=== PATIENT | female | born 1955 | race Caucasian/White ===

== ENCOUNTER 2019-01-30 10:52 | Outpatient (CLI) | payer OTHER ==
--- NOTE | 2019-01-30 12:43 | ULT ---
THYROID ULTRASOUND: 01/30/19 INDICATION: History of hypothyroidism. COMPARISON: None. FINDINGS: The left thyroid lobe measures 1.2 x 2.6 x 1 cm. Right thyroid lobe measures 1.1 x 3.4 x 1.4 cm. Thyr oid isthmus measures 0.18 cm. No focal thyroid lesion is evident. IMPRESSION: No focal thyroid lesion. POS: [facility]
== END 2019-01-30 10:53 | disposition home or self-care (01) ==
LOC: SCSULT 10:52
PROVIDERS: ATTEND Internal Medicine
DX: E03.9 Hypothyroidism, unspecified (principal)
CPT/HCPCS: 76536

== ENCOUNTER 2020-02-21 11:16 | Outpatient (CLI) | payer MEDICARE ==
--- NOTE | 2020-02-21 11:47 | RAD ---
Exam:2 views right hip HISTORY: Pain x1 year COMPARISON: None FINDINGS: Preserved joint space. Contour of the femoral head is maintained. No fracture. Visualized sacrum and bony pelvis are intact. IMPRESSION: No significant degenerative change. No fracture.
== END 2020-02-21 11:17 | disposition home or self-care (01) ==
LOC: BICRAD 11:16
PROVIDERS: ATTEND Internal Medicine
DX: M25.551 Pain in right hip (principal)

== ENCOUNTER 2021-07-26 09:31 | Outpatient (CLI) | payer MEDICARE | END 2021-07-26 09:32 | disposition home or self-care (01) | LOC: TBSIIMAG 09:31 | PROVIDERS: ATTEND Orthopaedic Surgery | DX: M23.91 Unspecified internal derangement of right knee (principal); M17.11 Unilateral primary osteoarthritis, right knee ==

== ENCOUNTER 2022-01-05 15:53 | Outpatient (CLI) | payer MEDICARE | END 2022-01-05 15:54 | disposition home or self-care (01) | LOC: LABBT 15:53 | PROVIDERS: ATTEND Orthopaedic Surgery | DX: Z01.818 Encounter for other preprocedural examination (principal); M17.11 Unilateral primary osteoarthritis, right knee | CPT/HCPCS: 71046; 80048; 81003; 85025; 85610; 86850; 86900; 86901; 87081; 87811; 93005; 93010 ==

== ENCOUNTER 2022-01-05 16:00 | Inpatient (IN) | payer MEDICARE ==
[2022-01-05 16:34] LABS: Bilirubin Neg (Negative); Blood, Urine 10 (Negative); Clarity Clear (Clear); Glucose, Urine (Dipstick) Normal (Negative); Ketone, Urine Negative (Negative); Leukocyte Negative (Negative); Nitrite Negative (Negative); Protein, Urine (Dipstick) Negative (Neg-Trace); Urobilinogen Normal mg/dL (Less than 2)
[2022-01-05 16:41] LABS: #Eosinphils 0.1 10x3/uL (0.0-0.5); #Monocytes 0.6 10x3/uL (0.0-1.1); %Basophils 0.5 % (0.0-2.0); %Lymphocytes 14.7 % (18.0-47.0); %Monocytes 10.3 % (0.0-10.0); %Neutrophils 72.1 % (40.0-75.0); Hemoglobin 12.9 g/dL (12.0-15.5); Mean Corpuscular HGB CONC 32.9 g/dL (32.0-36.0); Mean Corpuscular Hemoglobin 31.9 pg (27.0-33.0); Mean Corpuscular Volume 96.8 fl (81.6-98.3); Mean Platelet Volume 10.6 fl (7.4-10.4); Platelet Count 233 10x3/uL (150-450); RBC Distribution Width 11.9 % (11.5-14.5); Red Blood Cell (RBC) Count 4.05 10x6/uL (3.90-5.03); White Blood Cell (WBC) Count 5.5 10x3/uL (3.5-10.5)
[2022-01-05 16:54] LABS: Anion Gap 14 mmol/L (10-20); BUN (Urea Nitrogen) 21 mg/dL (9.8-20.1); Calc. Creatinine Clearance 0 mL/min (70-130); Calcium 9.7 mg/dL (7.8-10.44); Carbon Dioxide 27 mmol/L (23-31); Chloride 100 mmol/L (98-107); Estimated GFR 89; Glucose 94 mg/dL (80-115); Potassium 3.9 mmol/L (3.5-5.1); Sodium 137 mmol/L (136-145)
[2022-01-05 16:57] LABS: Prothrombin Time 10.5 sec (9.5-12.1)
[2022-02-16 15:50] LABS: #Eosinphils 0.2 10x3/uL (0.0-0.5); #Monocytes 0.6 10x3/uL (0.0-1.1); #Neutrophils 3.3 10x3/uL (1.5-8.4); %Basophils 0.8 % (0.0-2.0); %Eosinophils 4.2 % (0.0-6.0); %Lymphocytes 20.6 % (18.0-47.0); %Monocytes 11.8 % (0.0-10.0); Hemoglobin 12.6 g/dL (12.0-15.5); Mean Corpuscular Volume 93.9 fl (81.6-98.3); Mean Platelet Volume 10.3 fl (7.4-10.4); Platelet Count 217 10x3/uL (150-450); RBC Distribution Width 11.9 % (11.5-14.5); Red Blood Cell (RBC) Count 4.07 10x6/uL (3.90-5.03); White Blood Cell (WBC) Count 5.2 10x3/uL (3.5-10.5)
[2022-02-16 15:56] LABS: Bilirubin Neg (Negative); Blood, Urine 25 (Negative); Clarity Clear (Clear); Glucose, Urine (Dipstick) Normal (Negative); Ketone, Urine Negative (Negative); Leukocyte Negative (Negative); Nitrite Negative (Negative); Protein, Urine (Dipstick) 15 mg/dl (Neg-Trace); Urobilinogen Normal mg/dL (Less than 2)
[2022-02-16 16:03] LABS: Prothrombin Time 10.6 sec (9.5-12.1)
[2022-02-16 16:10] LABS: Anion Gap 14 mmol/L (10-20); BUN (Urea Nitrogen) 12 mg/dL (9.8-20.1); Calc. Creatinine Clearance 0 mL/min (70-130); Calcium 9.7 mg/dL (7.8-10.44); Carbon Dioxide 27 mmol/L (23-31); Chloride 101 mmol/L (98-107); Estimated GFR 90; Glucose 130 mg/dL (80-115); Potassium 3.8 mmol/L (3.5-5.1); Sodium 138 mmol/L (136-145)
[2022-02-21] MEDS ORDERED: Midazolam HCl 2 mg/2 ml Vial ONE (08:15)
[2022-02-21] MEDS ORDERED: Fentanyl 100 MCG/2 ML VIAL ONE ×2 (08:15→11:20)
[2022-02-21] MEDS ORDERED: Lidocaine 1% MPF 2 ML VIAL ONE ×2 (08:16→09:33)
[2022-02-21] MEDS ORDERED: Vancomycin 1 GM/200 ML BAG ONE (08:18)
[2022-02-21] MEDS ORDERED: Tranexamic Acid 1,000 MG/10 ML VIAL ONE ×2 (08:18→11:15)
[2022-02-21] MEDS ORDERED: Sodium Chloride 0.9% 100 ML ONE (08:18)
[2022-02-21] MEDS ORDERED: Ropivacaine 0.2% 550 ML 550 ML NERVE BLCK SCH (09:00)
[2022-02-21] MEDS ORDERED: HYDROcodone/Acetaminophen 10/325 mg Tablet PO PRN (09:00)
[2022-02-21] MEDS ORDERED: Zolpidem Tartrate 5 MG TAB PO PRN ×2 (09:00→10:57)
[2022-02-21] MEDS ORDERED: traMADol HCl 50 MG TAB PO PRN (09:00)
[2022-02-21] MEDS ORDERED: Promethazine HCl 25 MG/ML VIAL IM PRN ×3 (09:00→10:59)
[2022-02-21] MEDS ORDERED: Ondansetron PF 4 MG/2 ML Vial IVP PRN ×2 (09:00→10:57)
[2022-02-21] MEDS ORDERED: Bupivacaine PF 0.5% 30 ML VIAL ONE (09:05)
[2022-02-21] MEDS ORDERED: Clindamycin/D5W 600 mg/50 ml Premix Bag ONE (09:19)
[2022-02-21] MEDS ORDERED: Dexamethasone 20 MG/5 ML VIAL ONE (09:33)
[2022-02-21] MEDS ORDERED: Ondansetron PF 4 MG/2 ML Vial ONE (09:33)
[2022-02-21] MEDS ORDERED: Ropivacaine 0.5% HCl/PF (150 MG/30 ML VIAL) ONE (09:33)
[2022-02-21] MEDS ORDERED: PROPOFOL 200 MG/20 ML VIAL ONE (09:33)
[2022-02-21] MEDS ORDERED: fentaNYL Citrate/PF 100 MCG/2 ML SYRINGE ONE (09:54)
[2022-02-21] MEDS ORDERED: Acetaminophen 325 MG TAB PO PRN (10:57)
[2022-02-21] MEDS ORDERED: Promethazine HCl 25 MG/ML VIAL IVPB PRN (10:59)
[2022-02-21] MEDS ORDERED: Cetirizine HCl 10 MG TAB PO PRN (10:59)
[2022-02-21] MEDS ORDERED: Ondansetron HCl/PF 4 MG/2 ML Vial IVP PRN (10:59)
[2022-02-21] MEDS ORDERED: Tranexamic Acid 1,000 MG in Sodium Chloride 0.9% 100 ML IVPB SCH (11:00)
[2022-02-21] MEDS ORDERED: Ketorolac Tromethamine 30 MG/ML VIAL ONE (12:20)
[2022-02-21] MEDS: Ketorolac Tromethamine 30 MG/ML VIAL IVP SCH ×2 (12:21→17:33)
[2022-02-21] MEDS ORDERED: HYDROmorphone 0.5 MG/0.5 ML SYRINGE ONE ×2 (12:28→12:30)
[2022-02-21] MEDS ORDERED: Loratadine 10 MG TAB PO PRN (13:55)
[2022-02-21] MEDS ORDERED: Cholecalciferol 1,000 UNITS (25 MCG) TAB PO SCH (14:00)
[2022-02-21] MEDS: HYDROcodone/Acetaminophen 10/325 mg Tablet PO PRN ×2 (14:16→20:45)
[2022-02-21] MEDS: Sodium Chloride 0.9% 1,000 ML IV SCH ×2 (14:18→21:44)
[2022-02-21 14:22] VITALS: BMI 29.6
[2022-02-21] MEDS: Clindamycin/D5W 900 MG in Premix Bag 1 BAG IVPB SCH ×2 (15:45→21:42)
[2022-02-21] MEDS: Fentanyl 100 MCG/2 ML VIAL SLOW IVP PRN (15:45)
[2022-02-21] MEDS: Calcium Carbonate 600 MG TAB PO SCH (20:41)
[2022-02-21] MEDS: Aspirin 81 mg Enteric Coated Tablet PO SCH (20:41)
[2022-02-21] MEDS: Ezetimibe 10 MG TAB PO SCH (20:42)
[2022-02-21] MEDS: Ferrous Gluconate 324 MG TAB PO SCH (20:42)
[2022-02-21] MEDS: Liothyronine Sodium 5 MCG TAB PO SCH (20:43)
[2022-02-21] MEDS: Senokot S 8.6-50 MG TAB PO SCH (20:45)
[2022-02-21] MEDS ORDERED: Vancomycin 1 GM in Premix Bag 1 BAG IVPB SCH (21:00)
[2022-02-22] MEDS: Ketorolac Tromethamine 30 MG/ML VIAL IVP SCH ×4 (00:08→18:23)
[2022-02-22] MEDS: HYDROcodone/Acetaminophen 10/325 mg Tablet PO PRN ×6 (00:13→21:59)
[2022-02-22] MEDS: Levothyroxine Sodium 50 MCG TAB PO SCH (05:40)
[2022-02-22 06:11] LABS: Hemoglobin 10.8 g/dL (12.0-16.0); Mean Corpuscular HGB CONC 32.7 g/dL (32.0-36.0); Mean Corpuscular Hemoglobin 32.2 pg (27.0-31.0); Mean Corpuscular Volume 98.6 fL (78.0-98.0); Mean Platelet Volume 8.1 fL (7.4-10.4); Platelet Count 247 thou/uL (130-400); RBC Distribution Width 10.7 % (11.5-14.5); Red Blood Cell (RBC) Count 3.33 mill/uL (4.20-5.40); White Blood Cell (WBC) Count 9.1 thou/uL (4.8-10.8)
[2022-02-22] MEDS: Sodium Chloride 0.9% 1,000 ML IV SCH ×2 (06:26→18:05)
[2022-02-22] MEDS: Calcium Carbonate 600 MG TAB PO SCH ×2 (08:43→21:49)
[2022-02-22] MEDS: Ferrous Gluconate 324 MG TAB PO SCH ×2 (08:43→21:50)
[2022-02-22] MEDS: Senokot S 8.6-50 MG TAB PO SCH ×2 (08:43→21:50)
[2022-02-22] MEDS: Floranex 1 GM Packet PO SCH (08:43)
[2022-02-22] MEDS: Aspirin 81 mg Enteric Coated Tablet PO SCH ×2 (08:43→21:50)
[2022-02-22] MEDS: Multivitamin W/ Minerals 1 TAB PO SCH (08:43)
[2022-02-22] MEDS: Liothyronine Sodium 5 MCG TAB PO SCH ×2 (08:43→22:00)
[2022-02-22] MEDS: Magnesium Oxide 400 MG TAB PO SCH (08:43)
[2022-02-22] MEDS ORDERED: Aspirin 81 mg Enteric Coated Tablet PO SCH (09:00)
[2022-02-22] MEDS ORDERED: LACTINEX 1 TAB PO SCH (09:00)
[2022-02-22] MEDS: Fentanyl 100 MCG/2 ML VIAL SLOW IVP PRN ×2 (12:11→16:00)
[2022-02-22] MEDS: traMADol HCl 50 MG TAB PO PRN (13:25)
[2022-02-22] MEDS: Ezetimibe 10 MG TAB PO SCH (22:01)
[2022-02-23] MEDS: Ketorolac Tromethamine 30 MG/ML VIAL IVP SCH ×2 (00:22→06:40)
[2022-02-23] MEDS: Sodium Chloride 0.9% 1,000 ML IV SCH (01:52)
[2022-02-23] MEDS: HYDROcodone/Acetaminophen 10/325 mg Tablet PO PRN ×2 (04:35→09:01)
[2022-02-23 05:24] LABS: Hemoglobin 10.6 g/dL (12.0-16.0); Mean Corpuscular HGB CONC 32.4 g/dL (32.0-36.0); Mean Corpuscular Hemoglobin 32.3 pg (27.0-31.0); Mean Corpuscular Volume 99.7 fL (78.0-98.0); Mean Platelet Volume 7.9 fL (7.4-10.4); Platelet Count 223 thou/uL (130-400); Red Blood Cell (RBC) Count 3.29 mill/uL (4.20-5.40); White Blood Cell (WBC) Count 7.9 thou/uL (4.8-10.8)
[2022-02-23] MEDS: traMADol HCl 50 MG TAB PO PRN (06:41)
[2022-02-23] MEDS: Levothyroxine Sodium 50 MCG TAB PO SCH (06:41)
[2022-02-23 08:14] VITALS: BP 154/73; TEMP 98.7
[2022-02-23] MEDS: Aspirin 81 mg Enteric Coated Tablet PO SCH (08:59)
[2022-02-23] MEDS: Ferrous Gluconate 324 MG TAB PO SCH (08:59)
[2022-02-23] MEDS: Floranex 1 GM Packet PO SCH (08:59)
[2022-02-23] MEDS: Calcium Carbonate 600 MG TAB PO SCH (08:59)
[2022-02-23] MEDS: Multivitamin W/ Minerals 1 TAB PO SCH (09:00)
[2022-02-23] MEDS: Liothyronine Sodium 5 MCG TAB PO SCH (09:00)
[2022-02-23] MEDS: Magnesium Oxide 400 MG TAB PO SCH (09:00)
[2022-02-23] MEDS: Senokot S 8.6-50 MG TAB PO SCH (09:00)
== END 2022-02-23 11:30 | disposition home or self-care (01) | DRG 470 ==
LOC: SURG A 02-21 07:04 → SURG B 02-21 13:23
PROVIDERS: ADMIT Orthopaedic Surgery; ATTEND Orthopaedic Surgery
PROC: 0SRC0J9 Replacement of Right Knee Joint with Synthetic Substitute, Cemented, Open Approach (ICD-10-PCS; principal; 2022-02-21)
DX: M17.11 Unilateral primary osteoarthritis, right knee (principal); E03.9 Hypothyroidism, unspecified; E78.00 Pure hypercholesterolemia, unspecified; Z96.1 Presence of intraocular lens; M85.80 Other specified disorders of bone density and structure, unspecified site; Z20.822 Contact with and (suspected) exposure to COVID-19; Z83.3 Family history of diabetes mellitus; Z80.1 Family history of malignant neoplasm of trachea, bronchus and lung; Z82.49 Family history of ischemic heart disease and other diseases of the circulatory system; Z79.899 Other long term (current) drug therapy; Z79.82 Long term (current) use of aspirin; Z90.710 Acquired absence of both cervix and uterus; Z98.890 Other specified postprocedural states; Z90.89 Acquired absence of other organs; Z98.49 Cataract extraction status, unspecified eye; Z79.890 Hormone replacement therapy; Z88.1 Allergy status to other antibiotic agents; Z88.0 Allergy status to penicillin; Z88.2 Allergy status to sulfonamides; Z88.8 Allergy status to other drugs, medicaments and biological substances; Z91.012 Allergy to eggs
CPT/HCPCS: 36415; 80048; 81003; 85025; 85027; 85610; 86850; 86900; 86901; 87081; 87811; A4306; C1713; C1776; J1100; J1170; J1885; J2250; J2405; J2704; J2795; J3010; J3370; J3490; J7050; S0020

== ENCOUNTER 2022-02-16 14:44 | Outpatient (CLI) | payer MEDICARE ==
[2022-02-16 15:50] LABS: #Eosinphils 0.2 10x3/uL (0.0-0.5); #Monocytes 0.6 10x3/uL (0.0-1.1); #Neutrophils 3.3 10x3/uL (1.5-8.4); %Basophils 0.8 % (0.0-2.0); %Eosinophils 4.2 % (0.0-6.0); %Lymphocytes 20.6 % (18.0-47.0); %Monocytes 11.8 % (0.0-10.0); Hemoglobin 12.6 g/dL (12.0-15.5); Mean Corpuscular Volume 93.9 fl (81.6-98.3); Mean Platelet Volume 10.3 fl (7.4-10.4); Platelet Count 217 10x3/uL (150-450); RBC Distribution Width 11.9 % (11.5-14.5); Red Blood Cell (RBC) Count 4.07 10x6/uL (3.90-5.03); White Blood Cell (WBC) Count 5.2 10x3/uL (3.5-10.5)
[2022-02-16 15:56] LABS: Bilirubin Neg (Negative); Blood, Urine 25 (Negative); Clarity Clear (Clear); Glucose, Urine (Dipstick) Normal (Negative); Ketone, Urine Negative (Negative); Leukocyte Negative (Negative); Nitrite Negative (Negative); Protein, Urine (Dipstick) 15 mg/dl (Neg-Trace); Urobilinogen Normal mg/dL (Less than 2)
[2022-02-16 16:03] LABS: Prothrombin Time 10.6 sec (9.5-12.1)
[2022-02-16 16:10] LABS: Anion Gap 14 mmol/L (10-20); BUN (Urea Nitrogen) 12 mg/dL (9.8-20.1); Calc. Creatinine Clearance 0 mL/min (70-130); Calcium 9.7 mg/dL (7.8-10.44); Carbon Dioxide 27 mmol/L (23-31); Chloride 101 mmol/L (98-107); Estimated GFR 90; Glucose 130 mg/dL (80-115); Potassium 3.8 mmol/L (3.5-5.1); Sodium 138 mmol/L (136-145)
== END 2022-02-16 14:45 | disposition home or self-care (01) ==
LOC: LABBT 14:44
PROVIDERS: ATTEND Orthopaedic Surgery
DX: Z01.812 Encounter for preprocedural laboratory examination (principal); M17.11 Unilateral primary osteoarthritis, right knee
CPT/HCPCS: 80048; 81003; 85025; 85610; 86850; 86900; 86901; 87081

== ENCOUNTER 2022-04-19 12:52 | Outpatient (CLI) | payer MEDICARE | END 2022-04-19 12:53 | disposition home or self-care (01) | LOC: BICMAMMO 12:52 | PROVIDERS: ATTEND Internal Medicine | DX: Z12.31 Encounter for screening mammogram for malignant neoplasm of breast (principal); R92.1 Mammographic calcification found on diagnostic imaging of breast; R92.8 Other abnormal and inconclusive findings on diagnostic imaging of breast | CPT/HCPCS: 77063; 77067 ==